=== PATIENT | male | born 1985 ===

== ENCOUNTER 2018-03-24 08:55 | Emergency (ER) | payer OTHER ==
[2018-03-24 09:14] VITALS: RESP 18; BMI 27.0
[2018-03-24] MEDS ORDERED: Naproxen 500 MG TAB PO STA (09:28)
[2018-03-24] MEDS ORDERED: Naproxen 500 MG TAB PO ONE (09:35)
--- NOTE | 2018-03-24 09:40 | ED PDOC ---
HPI: Headache Time Seen by Provider: 03/24/18 09:22 Chief Complaint (Nursing): Headache Chief Complaint (Provider): Headache History Per: Patient History/Exam Limitations: no limitations Onset/Duration Of Symptoms: Days (x3) Preceeding Symptoms: denies: Visual Disturbances Associated Symptoms: denies: Nausea, Vomiting Additional Complaint(s): 32 years old male presents to ER for evaluation of left sided headache onset 3 days. Patient reports hitting his head at work 2 weeks ago and denies loss of consciousness. He denies any dizziness, visual change, nausea, vomiting or stiff neck. PMD: non provided Past Medical History Reviewed: Historical Data, Nursing Documentation, Vital Signs Vital Signs: Last Vital Signs Temp 98.7 F 03/24/18 09:13 Pulse 89 03/24/18 09:13 Resp 18 03/24/18 09:13 BP 133/86 03/24/18 09:13 Pulse Ox 98 03/24/18 09:13 - Medical History PMH: No Chronic Diseases - Surgical History Surgical History: No Surg Hx - Family History Family History: States: Unknown Family Hx - Social History Current smoker - smoking cessation education provided: No Alcohol: None Drugs: Denies - Home Medications Home Medications: Ambulatory Orders Medication Instructions Recorded Loperamide Hydrochloride [Maalox 2 mg PO DAILY PRN #20 tab 04/25/15 Anti-Diarrheal] Naproxen [Naprosyn] 500 mg PO Q12H #20 tab 03/24/18 - Allergies Allergies/Adverse Reactions: Allergies Allergy/AdvReac Type Severity Reaction Status Date / Time No Known Allergies Allergy Verified 04/25/15 12:57 Review of Systems ROS Statement: Except As Marked, All Systems Reviewed And Found Negative Eyes: Negative for: Vision Change ENT: Negative for: Nose Pain Gastrointestinal: Negative for: Nausea, Vomiting Neurological: Positive for: Headache. Negative for: Dizziness Physical Exam - Reviewed Nursing Documentation Reviewed: Yes Vital Signs Reviewed: Yes - Physical Exam Appears: Positive for: Non-toxic, No Acute Distress Head Exam: Positive for: ATRAUMATIC, NORMOCEPHALIC Skin: Positive for: Normal Color, Warm, Dry Eye Exam: Positive for: Normal appearance, EOMI, PERRL Neck: Positive for: Normal, Painless ROM, Supple Cardiovascular/Chest: Positive for: Regular Rate, Rhythm. Negative for: Murmur Respiratory: Positive for: Normal Breath Sounds. Negative for: Wheezing Neurologic/Psych: Positive for: Alert, Oriented (x3) - ECG O2 Sat by Pulse Oximetry: 98 (RA) Pulse Ox Interpretation: Normal Medical Decision Making Medical Decision Making: Time: 927 Initial plan: --CT head w/o contrast --Naproxen [address] head w/o contrast FINDINGS: HEMORRHAGE: No intracranial hemorrhage. BRAIN: Engle-white matter differentiation is preserved. There is no mass, mass effect or abnormal extra-axial fluid collection. There is no territorial infarction. The midline sagittal structures are normal. VENTRICLES: The ventricles are normal in size, shape and configuration. CALVARIUM: There is no calvarial fracture or extracranial soft tissue swelling. PARANASAL SINUSES: Predominantly clear. MASTOID AIR CELLS: Predominantly clear. OTHER FINDINGS: None. IMPRESSION: No acute intracranial abnormality. Scribe Attestation: Documented by Yanira Heredia, acting as a scribe for Ronald Dick MD. Provider Scribe Attestation: All medical record entries made by the Scribe were at my direction and personally dictated by me. I have reviewed the chart and agree that the record accurately reflects my personal performance of the history, physical exam, medical decision making, and the department course for this patient. I have also personally directed, reviewed, and agree with the discharge instructions and disposition. Disposition - Clinical Impression Clinical Impression: Headache - Patient ED Disposition Is Patient to be Admitted: No Counseled Patient/Family Regarding: Studies Performed, Diagnosis, Need For Followup, Rx Given - Disposition Referrals: Artemio Garcia MD [Medical Doctor] - Disposition: Routine/Home Disposition Time: 10:58 Condition: FAIR Prescriptions: Naproxen [Naprosyn] 500 mg PO Q12H #20 tab Instructions: Headache, Adult Forms: [facility] (Japanese) Print Language: LAO
--- NOTE | 2018-03-24 10:36 | CT ---
Date of service: 03/24/2018 PROCEDURE: CT HEAD WITHOUT CONTRAST. HISTORY: r/o bleed COMPARISON: None available. TECHNIQUE: Axial computed tomography images were obtained through the head/brain without intravenous contrast. Radiation dose: Total exam DLP = 866.0 mGy-cm. This CT exam was performed using one or more of the following dose reduction techniques: Automated exposure control, adjustment of the mA and/or kV according to patient size, and/or use of iterative reconstruction technique. FINDINGS: HEMORRHAGE: No intracranial hemorrhage. BRAIN: Engle-white matter differentiation is preserved. There is no mass, mass effect or abnormal extra-axial fluid collection. There is no territorial infarction. The midline sagittal structures are normal. VENTRICLES: The ventricles are normal in size, shape and configuration. CALVARIUM: There is no calvarial fracture or extracranial soft tissue swelling. PARANASAL SINUSES: Predominantly clear. MASTOID AIR CELLS: Predominantly clear. OTHER FINDINGS: None. IMPRESSION: No acute intracranial abnormality.
[2018-03-24 11:12] VITALS: BP 132/82; PULSE 86; TEMP 98.8; O2SAT 99
== END 2018-03-24 11:05 | disposition home or self-care (01) ==
LOC: H.ER 08:55
DX: R51 Headache (principal)